=== PATIENT | female | born 1990 | race Caucasian/White ===

== ENCOUNTER → 2021-10-28 | Outpatient (CLI) | payer OTHER ==
--- NOTE | 2021-10-28 10:38 | RAD ---
US ABDOMEN COMPLETE History: Reason: ABD PAIN / Spl. Instructions: / History: Comparison: None. Technique: Sonographic examination of the abdomen was performed and multiple grayscale and color Dopp ler static images were obtained. Findings: Liver demonstrates normal echogenicity. The liver measures 18.1 cm. Portal flow is patent. No cholelithiasis, gallbladder wall thickening or pericholecystic fluid. Common bile duct measures 1 mm in diameter. Visualized pancreas unremarkable. The right kidney measures 11.5 x 4.8 x 4.2 cm. No hydronephrosis. The left kidney measures 10.4 x 5.0 x 6.1 cm. No hydronephrosis. The spleen measures 10.6 cm. Not well evaluated due to overlying structures. Visualized portions of the abdominal aorta and IVC are normal. IMPRESSION: 1. Borderline hepatomegaly. 2. Otherwise, unremarkable abdominal ultrasound. Electronically signed by: Gautam Iraheta DO (10/28/2021 10:35 AM) [id number]
== END ==
LOC: US 09:54
PROVIDERS: ATTEND Internal Medicine
DX: R16.0 Hepatomegaly, not elsewhere classified (principal)
CPT/HCPCS: 76700